=== PATIENT | female | born 1965 | race Caucasian/White ===

== ENCOUNTER 2019-06-25 08:09 | Outpatient (CLI) | payer BC ==
--- NOTE | 2019-06-25 09:02 | MMO ---
Bilateral MAMMO Bilat Diag [facility]. CLINICAL HISTORY: Patient is 53 years old and is seen for diagnostic exam. The patient has the following family history of breast cancer: 2 paternal aunts. The patient has no personal history of cancer. VIEWS: The views performed were: bilateral craniocaudal with tomosynthesis; bilateral mediolateral oblique with tomosynthesis; and bilateral mediolateral with tomosynthesis. FILMS COMPARED: The present examination has been compared to prior imaging studies performed at [facility] on 06/25/2019, and at [facility] on 10/04/2014, 10/25/2014 and 08/29/2017. This study has been interpreted with the assistance of computer-aided detection. MAMMOGRAM FINDINGS: There are scattered fibroglandular densities. There are benign appearing calcifications seen in both breasts. There are no suspicious masses, suspicious calcifications, or new areas of architectural distortion. IMPRESSION: THERE IS NO MAMMOGRAPHIC EVIDENCE OF MALIGNANCY. A ROUTINE FOLLOW-UP MAMMOGRAM IN 1 YEAR IS RECOMMENDED. THE RESULTS OF THIS EXAM WERE SENT TO THE PATIENT. ACR BI-RADS Category 2 - Benign finding MAMMOGRAPHY NOTE: 1. A negative mammogram report should not delay a biopsy if a dominant of clinically suspicious mass is present. 2. Approximately 10% to 15% of breast cancers are not detected by mammography. 3. Adenosis and dense breasts may obscure an underlying neoplasm. Reported by: MICHAEL SCHREIBER MD Electonically Signed: [id number]
--- NOTE | 2019-06-25 10:54 | ULT ---
LEFT BREAST ULTRASOUND: HISTORY: Palpable mass at the 12 o'clock position of the left breast. COMPARISON: Mammograms from 06/25/2019, 08/29/2017 and 10/04/2014. TECHNIQUE: Multiplanar díaz-scale and color Doppler images were obtained in a left breast ultrasound. FINDINGS: At the area of palpable abnormality at the 12 o'clock position of the left breast, approximately 10 c m from the nipple, there is a well circumscribed, isoechoic structure measuring 2.5 cm in size. This is in the subcutaneous fat and is isoechoic to the subcutaneous fat and represents a lipoma. No suspi cious shadowing or suspicious mass is seen. IMPRESSION: BI-RADS category 2 - benign findings. Annual screening mammography is recommended. POS: [facility]
== END 2019-06-25 08:10 | disposition home or self-care (01) ==
LOC: BICMAMMO 08:09
DX: Z09 Encounter for follow-up examination after completed treatment for conditions other than malignant neoplasm (principal); Z87.898 Personal history of other specified conditions
CPT/HCPCS: 77066; G0279